=== PATIENT | male | born 1995 | race Caucasian/White ===

== ENCOUNTER 2016-09-13 10:40 | Outpatient (CLI) | payer OTHER | END 2016-09-13 10:41 | disposition home or self-care (01) | DX: R07.9 Chest pain, unspecified (principal); R06.00 Dyspnea, unspecified ==

== ENCOUNTER 2017-04-23 16:24 | Emergency (ER) | payer OTHER ==
[2017-04-23 16:29] VITALS: BP 119/70
--- NOTE | 2017-04-23 16:45 | ED Physician Documentation ---
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 No: NVD Contributing factors: No: Sick contact, Travel, Immunocompromised Similar symptoms before: Has not had sx before Recently seen: Not recently seen Review of Systems Constitutional: reports: Fever, Chills, Myalgias Nose: reports: Rhinorrhea / runny nose, Congestion, Sinus pressure / pain Throat: reports: Sore throat Respiratory: reports: Cough GI: reports: Nausea. denies: Vomiting, Diarrhea Skin: denies: Rash PD PAST MEDICAL HISTORY - Past Medical History Cardiovascular: None Respiratory: None Neuro: None Endocrine/Autoimmune: None - Past Surgical History Past Surgical History: No - Present Medications Home Medications: Ambulatory Orders Medication Instructions Recorded Confirmed Cetirizine [ZyrTEC] 10 mg PO DAILY #20 tablet 04/23/17 Dexamethasone [Decadron] 4 mg PO DAILY #5 tablet 04/23/17 - Allergies Allergies/Adverse Reactions: Allergies Allergy/AdvReac Type Severity Reaction Status Date / Time No Known Drug Allergies Allergy Verified 04/23/17 16:29 - Social History Does the pt smoke?: No Smoking Status: Never smoker Does the pt drink ETOH?: No Does the pt have substance abuse?: No - Immunizations Immunizations are current?: Yes - POLST Patient has POLST: No PD ED PE NORMAL - Vitals Vital signs reviewed: Yes - General General: Alert and oriented X 3, No acute distress, Well developed/nourished - HEENT HEENT: Ears normal, Pharynx benign - Neck Neck: Supple, no meningeal sign, No adenopathy - Cardiac Cardiac: RRR, No murmur - Respiratory Respiratory: Clear bilaterally - Abdomen Abdomen: Soft, Non tender - Derm Derm: Normal color, Warm and dry, No rash Results - Vitals Vitals: Oxygen O2 Source Room air PD MEDICAL DECISION MAKING - ED course Complexity details: considered differential, d/w patient Departure - Departure Disposition: 01 Home, Self Care Clinical Impression: Upper respiratory infection Qualifiers: URI type: unspecified URI Qualified Code(s): J06.9 - Acute upper respiratory infection, unspecified Condition: Stable Record reviewed to determine appropriate education?: Yes Instructions: ED Upper Resp Infec No Abx Tx Prescriptions: Cetirizine [ZyrTEC] 10 mg PO DAILY #20 tablet Dexamethasone [Decadron] 4 mg PO DAILY #5 tablet Comments: Drink lots of fluids. Tylenol or ibuprofen if needed for fevers or pains. Continue the DayQuil and NyQuil as needed for congestion and cough. If the sinus pressure and cough persist enough, you could continue the Decadron steroid daily for 5 more days. However it has not required for improvement. He could also use an antihistamine for the next week or 2 just to help with congestion. Get [id number] medicines are reasonable as well. 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 Your cough will likely continue for couple more weeks and is not prohibitive of working. Okay to resume work when you are not feverish or acutely ill. Forms: Activity restrictions Discharge Date/Time: 04/23/17 17:30
[2017-04-23] MEDS ORDERED: DEXAMETHASONE 10 MG/ML VIAL PO STA (16:57)
[2017-04-23] MEDS ORDERED: IBUPROFEN 600 MG TABLET PO STA (16:57)
[2017-04-23] MEDS ORDERED: CETIRIZINE 10 MG TABLET PO STA (16:57)
[2017-04-23] MEDS ORDERED: CETIRIZINE 10 MG TABLET ONE (17:16)
[2017-04-23] MEDS ORDERED: IBUPROFEN 600 MG TABLET PO ONE (17:16)
[2017-04-23] MEDS ORDERED: DEXAMETHASONE 10 MG/ML VIAL ONE (17:17)
== END 2017-04-23 17:30 | disposition home or self-care (01) ==
LOC: ED 16:24
DX: J06.9 Acute upper respiratory infection, unspecified (principal)
CPT/HCPCS: 99283; A9270

== ENCOUNTER 2020-03-07 08:26 | Emergency (ER) | payer OTHER, MEDICAID ==
[2020-03-07] MEDS ORDERED: BUFFERED LIDOCAINE 10 ML SYRINGE SUBQ STA (09:11)
[2020-03-07] MEDS ORDERED: BUPIVACAINE 0.5% PF 10 ML VIAL SUBQ STA (09:12)
--- NOTE | 2020-03-07 09:22 | XRAY Report ---
PROCEDURE: Finger(s) RT INDICATIONS: trauma/crush injury TECHNIQUE: AP hand, 4 views of the right finger(s) acquired. COMPARISON: None. FINDINGS: Bones: Middle finger distal phalanx and distal tuft fracture. Soft tissues: Soft tissue swelling and laceration involving the middle finger. Possible punctate radi opaque foreign bodies project at the level of the middle phalanx. IMPRESSION: Middle finger distal phalanx fractures Soft tissue swelling and possible punctate radiopaque foreign bodies. Reviewed by: Dmitri Lombardi MD on 03/07/2020 9:20 AM PDT Approved by: Dmitri Lombardi MD on 03/07/2020 9:20 AM PDT Station ID: [id number]
--- NOTE | 2020-03-07 10:21 | ED Physician Documentation ---
PD HPI UPPER EXT INJURY - Stated complaint Stated Complaint: FINGER INJ - RT MIDDLE - Chief complaint Chief Complaint: Trauma Ext - History obtained from History obtained from: Patient - History of Present Illness Location: Right, Finger (middle) Type of injury: Crush Where injury occurred: Work Timing - onset: Today Timing - duration: Minutes Timing - details: Abrupt onset, Still present Improved by: Rest, Immobilization Worsened by: Moving, Palpating Associated symptoms: Swelling. 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 Review of Systems Constitutional: denies: Fever Eyes: denies: Decreased vision Ears: denies: Ear pain Nose: denies: Congestion Throat: denies: Sore throat Respiratory: denies: Cough GI: denies: Vomiting PD PAST MEDICAL HISTORY - Past Medical History Cardiovascular: None Respiratory: None Endocrine/Autoimmune: None - Past Surgical History Past Surgical History: No - Present Medications Home Medications: Ambulatory Orders Medication Instructions Recorded Confirmed Cetirizine [ZyrTEC] 10 mg PO DAILY #20 tablet 04/23/17 dexAMETHasone [Decadron] 4 mg PO DAILY #5 tablet 04/23/17 Hydrocodone/Acetaminophen 1 - 2 each PO Q6H PRN #14 tablet 03/07/20 [Hydrocodone-Acetamin 5-325 mg] - Allergies Allergies/Adverse Reactions: Allergies Allergy/AdvReac Type Severity Reaction Status Date / Time No Known Drug Allergies Allergy Verified 03/07/20 08:38 - Social History Does the pt smoke?: No Smoking Status: Never smoker Does the pt drink ETOH?: No Does the pt have substance abuse?: No - Immunizations Immunizations are current?: Yes - POLST Patient has POLST: No PD ED PE NORMAL - Vitals Vital signs reviewed: Yes (Normal) - General General: Alert and oriented X 3, No acute distress, Well developed/nourished - HEENT HEENT: Atraumatic, PERRL, EOMI - Respiratory Respiratory: No respiratory distress - Derm Derm: Normal color, Warm and dry, No rash - Extremities Extremities: Other (There is a flap laceration to the volar surface of the right middle finger over the DIP joint. The laceration does extend deep to the tendon and does not involve the tendon. There is maceration of tissue and some for material in the wound. There is a subungual hematoma dorsally and no splitting.) - Neuro Neuro: Alert and oriented X 3, program medical director 2-12 intact, No motor deficit, No sensory deficit, Normal speech Eye Opening: Spontaneous Motor: Obeys Commands Verbal: Oriented GCS Score: 15 - Psych Psych: Normal mood, Normal affect Results - Vitals Vitals: Vital Signs - 24 hr 03/07/20 03/07/20 03/07/20 08:35 10:00 10:53 Temperature 36.5 C 36.5 C Heart Rate 65 68 68 Respiratory 16 16 16 Rate Blood Pressure 115/80 119/83 H 126/79 O2 Saturation 20 L 99 99 Oxygen O2 Source Room air - Rads (name of study) fingers Radiology: Prelim report reviewed Procedures - Laceration (location) volar middle finger Wound type: Stellate, Flap, Into muscle, Contaminated Neurovascular status: Sensory intact, Motor intact Tendon involvement: Tendon intact Anesthesia: Lidocaine 1%, Marcaine 0.5%, OTH (digital block with 50/50 Bupivacaine/lidocaine) Wound Preparation: Hibiclens, Irrigated copiously NS, Debrided moderately, Wound explored, To the base, FB removed Skin layer closure: Nylon, Dermabond, Interrupted, Size #-0 - enter number (4- 0), Other (T-closure) Other: Patient tolerated well, No complications, Neurovascular intact, Dressing applied, Tetanus booster given Complexity: Intermediate PD MEDICAL DECISION MAKING - ED course Complexity details: reviewed results, re-evaluated patient, considered differential, d/w patient ED course: 24-year-old male with a crush injury to the right middle finger and a deep volar laceration has laceration repaired with suturing and to closure after extensive cleaning he has evidence of fracture is placed into a splint. Departure - Departure Disposition: 01 Home, Self Care Clinical Impression: Crushing injury of finger of right hand Fracture of phalanx of right middle finger Qualifiers: Encounter type: initial encounter Fracture type: closed Phalanx: distal Fracture alignment: nondisplaced Qualified Code(s): S62.662A - Nondisplaced fracture of distal phalanx of right middle finger, initial encounter for closed fracture Finger laceration Qualifiers: Encounter type: initial encounter Finger: middle finger Damage to nail status: without damage Foreign body presence: with foreign body Laterality: right Qual ified Code(s): S61.222A - Laceration with foreign body of right middle finger without damage to nail, initial encounter Instructions: ED Fx Finger Closed, ED Laceration Sure Close Follow-Up: [facility] [Provider Group] Prescriptions: Hydrocodone/Acetaminophen [Hydrocodone-Acetamin 5-325 mg] 1 - 2 each PO Q6H PRN #14 tablet PRN Reason: Pain Forms: Activity restrictions Discharge Date/Time: 03/07/20 11:11
[2020-03-07] MEDS ORDERED: TETANUS/DIPHTHERIA/PERTUSSIS 0.5 ML SYRINGE IM ONE (10:24)
[2020-03-07 10:54] VITALS: BP 126/79
== END 2020-03-07 11:11 | disposition home or self-care (01) ==
LOC: ED 08:26
DX: S62.632B Displaced fracture of distal phalanx of right middle finger, initial encounter for open fracture (principal); W20.8XXA Other cause of strike by thrown, projected or falling object, initial encounter; Y93.H2 Activity, gardening and landscaping; Y99.0 Civilian activity done for income or pay
CPT/HCPCS: 1040M; 12001; 73140; 90471; 99282; 99283

== ENCOUNTER 2020-03-13 13:42 | Outpatient (CLI) | payer OTHER ==
--- NOTE | 2020-03-13 16:30 | XRAY Report ---
PROCEDURE: Finger(s) RT INDICATIONS: RIGHT MIDDLE FINGER FRACTURE TECHNIQUE: AP view of the right hand with 2 views of the right third finger COMPARISON: 03/07/2020 FINDINGS: Bones: Mildly displaced fracture of the right distal third phalanx through the metaphysis extending i nto the interphalangeal joint is unchanged. Small fracture fragment of the tuft is also unchanged. Soft tissues: No suspicious soft tissue calcifications. IMPRESSION: Right distal third phalanx fractures are unchanged. Reviewed by: Jude Gallegos MD on 03/13/2020 4:28 PM PDT Approved by: Jude Gallegos MD on 03/13/2020 4:28 PM PDT Station ID: [id number]
== END 2020-03-13 13:43 | disposition home or self-care (01) ==
LOC: DI.WCP 13:42
PROVIDERS: ATTEND Physician Assistant
DX: S62.626D Displaced fracture of middle phalanx of right little finger, subsequent encounter for fracture with routine healing (principal)
CPT/HCPCS: 73140